=== PATIENT | male | born 1955 | race Caucasian/White ===

== ENCOUNTER 2016-10-08 21:34 | Inpatient (IN) | payer OTHER ==
[~2016-10-08] VITALS: Ht 182.9 cm; Wt 104.3 kg
[2016-10-09 01:15] LABS: HEMOGLOBIN 13.1 gm/dl (14.0-17.5); RED BLOOD COUNT 4.36 M/UL (4.20-5.50); WHITE BLOOD COUNT 8.7 K/UL (4.5-11.0)
[2016-10-09] MEDS ORDERED: WELLBUTRIN 75 M75 MG PO (11:22)
[2016-10-09] MEDS ORDERED: VOLTAREN EC 5050 MG PO (11:23)
[2016-10-09] MEDS ORDERED: KLONOPIN TAB 00.5 MG PO (11:23)
[2016-10-09] MEDS ORDERED: ESCITALOPRAM OX20 MG PO (11:24)
[2016-10-09] MEDS ORDERED: NEURONTIN 300300 MG PO (11:24)
[2016-10-09] MEDS ORDERED: GLUCOTROL5 MG PO (11:25)
[2016-10-09] MEDS ORDERED: LOPID TAB 600600 MG PO (11:25)
[2016-10-09] MEDS ORDERED: ZESTORETIC 20-1 EACH PO (11:26)
[2016-10-09] MEDS ORDERED: LYRICA200 MG PO (11:26)
[2016-10-09] MEDS ORDERED: TOPROL XL50 MG PO (11:27)
[2016-10-09] MEDS ORDERED: GLUCOPHAGE1000 MG PO (11:27)
[2016-10-09] MEDS ORDERED: OMEPRAZOLE40 MG PO (11:28)
[2016-10-09] MEDS ORDERED: TRAZODONE HCL50 MG PO (11:28)
[2016-10-09] MEDS ORDERED: ALLERGY10 MG PO (11:29)
[2016-10-09] MEDS ORDERED: VICTOZA 1818 MG/3 ML SQ (11:29)
[2016-10-09] MEDS ORDERED: TOUJEO SQ (11:31)
[2016-10-09] MEDS ORDERED: ENDOCET 10-3251 EACH PO (11:34)
[2016-10-10 03:54] LABS: HEMOGLOBIN 11.5 gm/dl (14.0-17.5)
[2016-10-10 04:00] LABS: RED BLOOD COUNT 3.86 M/UL (4.20-5.50); WHITE BLOOD COUNT 14.1 K/UL (4.5-11.0)
[2016-10-11 07:21] LABS: RED BLOOD COUNT 3.73 M/UL (4.20-5.50)
[2016-10-11 07:42] LABS: BUN/CREATININE RATIO 20 (0-10)
[2016-10-14 05:24] LABS: BUN/CREATININE RATIO 19 (0-10)
[2016-10-15 04:46] LABS: HEMOGLOBIN 12.8 gm/dl (14.0-17.5); RED BLOOD COUNT 4.28 M/UL (4.20-5.50); WHITE BLOOD COUNT 9.9 K/UL (4.5-11.0)
[2016-10-15 05:13] LABS: BUN/CREATININE RATIO 18 (0-10)
[2016-10-16] MEDS ORDERED: DAKIN'S SOLUTI500 ML IR (14:03)
[2016-10-16] MEDS ORDERED: ZYVOX600 MG PO (14:06)
== END 2016-10-16 17:10 | disposition home or self-care (01) | DRG 540 ==
LOC: ER1 21:34 → M/S 10-09 08:30 → ZEROF 10-09 08:30 → M/S 10-09 12:52
PROVIDERS: Emergency Medicine; Physician Assistant Medical; ADMIT Family Medicine
PROC: 3E0234Z Introduction of Serum, Toxoid and Vaccine into Muscle, Percutaneous Approach (ICD-10-PCS; principal; 2016-10-16)
DX: M86.9 Osteomyelitis, unspecified (principal); N17.9 Acute kidney failure, unspecified; E87.2 Acidosis; L03.032 Cellulitis of left toe; L97.521 Non-pressure chronic ulcer of other part of left foot limited to breakdown of skin; D64.9 Anemia, unspecified; E11.65 Type 2 diabetes mellitus with hyperglycemia; E11.42 Type 2 diabetes mellitus with diabetic polyneuropathy; E11.649 Type 2 diabetes mellitus with hypoglycemia without coma; E11.22 Type 2 diabetes mellitus with diabetic chronic kidney disease; I12.9 Hypertensive chronic kidney disease with stage 1 through stage 4 chronic kidney disease, or unspecified chronic kidney disease; N18.9 Chronic kidney disease, unspecified; B95.62 Methicillin resistant Staphylococcus aureus infection as the cause of diseases classified elsewhere; E78.5 Hyperlipidemia, unspecified; M54.6 Pain in thoracic spine; J43.9 Emphysema, unspecified; K21.9 Gastro-esophageal reflux disease without esophagitis; F41.9 Anxiety disorder, unspecified; Z23 Encounter for immunization; Z87.891 Personal history of nicotine dependence; Z88.8 Allergy status to other drugs, medicaments and biological substances; Z88.5 Allergy status to narcotic agent; Z79.891 Long term (current) use of opiate analgesic; Z79.899 Other long term (current) drug therapy; Z79.84 Long term (current) use of oral hypoglycemic drugs
CPT/HCPCS: ECHO; 36415; 70450; 71020; 73718; 78452; 80048; 80053; 80061; 80202; 81001; 82550; 82553; 82728; 82962; 83036; 83540; 83550; 83690; 83735; 83874; 83880; 84484; 85025; 85027; 85379; 85610; 85730; 86140; 87070; 87077; 87086; 87186; 87205; 93005; 93017; 93306; 93925; 99285; A9502; G0378; J3370; J7030; J7070; Q2039

== ENCOUNTER 2016-12-26 08:48 | Day surgery (SDC) | payer OTHER ==
[~2016-12-26] VITALS: Ht 182.9 cm; Wt 109.3 kg
[~2016-12-26 08:48] MED LIST: ALLERGY10 MG PO; DAKIN'S SOLUTI500 ML IR; ENDOCET 10-3251 EACH PO; ESCITALOPRAM OX20 MG PO; GLUCOPHAGE1000 MG PO; GLUCOTROL5 MG PO; KLONOPIN TAB 00.5 MG PO; LOPID TAB 600600 MG PO; LYRICA200 MG PO; NEURONTIN 300300 MG PO; OMEPRAZOLE40 MG PO; TOPROL XL50 MG PO; TOUJEO SQ; TRAZODONE HCL50 MG PO; VICTOZA 1818 MG/3 ML SQ; VOLTAREN EC 5050 MG PO; WELLBUTRIN 75 M75 MG PO; ZESTORETIC 20-1 EACH PO; ZYVOX600 MG PO
[2016-12-26 09:21] LABS: HEMOGLOBIN 13.7 gm/dl (14.0-17.5); RED BLOOD COUNT 4.48 M/UL (4.20-5.50); WHITE BLOOD COUNT 6.3 K/UL (4.5-11.0)
[2016-12-27 06:36] LABS: HEMOGLOBIN 12.1 gm/dl (14.0-17.5); WHITE BLOOD COUNT 7.6 K/UL (4.5-11.0)
[2016-12-27 06:58] LABS: RED BLOOD COUNT 4.02 M/UL (4.20-5.50)
[2016-12-27] MEDS ORDERED: VITAMIN C 500500 MG PO (17:58)
[2016-12-27] MEDS ORDERED: ASPIRIN325 MG PO (18:20)
[2016-12-27] MEDS ORDERED: BACTRIM DS TAB1 EACH PO (18:21)
[2016-12-27] MEDS ORDERED: CLINDAMYCIN HC300 MG PO (18:21)
== END 2016-12-27 20:15 | disposition home or self-care (01) ==
LOC: OR 08:48 → M/S 16:47 → OR 18:18 → M/S 18:49 → OR 12-27 20:15 → M/S 12-27 20:15
PROVIDERS: Podiatrist Foot & Ankle Surgery
PROC: 0LNW3ZZ Release Left Foot Tendon, Percutaneous Approach (ICD-10-PCS; 2016-12-26)
PROC: 0HBRXZZ Excision of Toe Nail, External Approach (ICD-10-PCS; 2016-12-26)
PROC: 0HBRXZZ Excision of Toe Nail, External Approach (ICD-10-PCS; 2016-12-26)
PROC: 0HBRXZZ Excision of Toe Nail, External Approach (ICD-10-PCS; 2016-12-26)
PROC: 0HBRXZZ Excision of Toe Nail, External Approach (ICD-10-PCS; 2016-12-26)
PROC: 0HBRXZZ Excision of Toe Nail, External Approach (ICD-10-PCS; 2016-12-26)
PROC: 0Y6S0Z0 Detachment at Left 2nd Toe, Complete, Open Approach (ICD-10-PCS; principal; 2016-12-26 10:45)
DX: T81.89XA Other complications of procedures, not elsewhere classified, initial encounter (principal); E11.69 Type 2 diabetes mellitus with other specified complication; M86.672 Other chronic osteomyelitis, left ankle and foot; B95.62 Methicillin resistant Staphylococcus aureus infection as the cause of diseases classified elsewhere; E11.40 Type 2 diabetes mellitus with diabetic neuropathy, unspecified; M20.42 Other hammer toe(s) (acquired), left foot; B35.1 Tinea unguium; L60.3 Nail dystrophy; L60.2 Onychogryphosis; I10 Essential (primary) hypertension; G47.30 Sleep apnea, unspecified; K21.9 Gastro-esophageal reflux disease without esophagitis; G89.29 Other chronic pain; M19.90 Unspecified osteoarthritis, unspecified site; F41.9 Anxiety disorder, unspecified; F32.9 Major depressive disorder, single episode, unspecified; F17.220 Nicotine dependence, chewing tobacco, uncomplicated; Z86.69 Personal history of other diseases of the nervous system and sense organs; Z87.440 Personal history of urinary (tract) infections; Z88.8 Allergy status to other drugs, medicaments and biological substances; Z79.84 Long term (current) use of oral hypoglycemic drugs; Z79.891 Long term (current) use of opiate analgesic; Z79.899 Other long term (current) drug therapy; Z98.890 Other specified postprocedural states
CPT/HCPCS: 36415; 73630; 80048; 82962; 83036; 85027; 86140; 87070; 87077; 87186; 87205; 93005; G0378; J1200; J1815; J2250; J2405; J2795; J3010; J3370; J7030; J7050; J7070; J7120

== ENCOUNTER → 2020-07-24 | Outpatient (CLI) | payer OTHER ==
[~2020-07-24] MED LIST changes: +ARICEPT5 MG PO; +ASPIRIN325 MG PO; +AUGMENTIN 875-1 EACH PO; +BACTRIM DS TAB1 EACH PO; +CLINDAMYCIN HC300 MG PO; +CYCLOBENZAPRINE10 MG PO; +DOXYCYCLINE HY100 MG PO; +FARXIGA10 MG PO; +FERROUS SULFAT325 M2 PO; +FISH OIL 1,2001 EACH PO; +GLUCOPHAGE XR500 MG PO; +GLUCOTROL 10 MG10 MG PO; -GLUCOTROL5 MG PO; +IBU600 MG PO; +KEFLEX CAP 500500 MG PO; +KLONOPIN2 MG PO; +LASIX20 MG PO; +LEXAPRO20 MG PO; +LIPITOR20 MG PO; +LISINOPRIL-HCT1 EAC1 PO; +LOPRESSOR50 MG PO; +NAMENDA10 MG PO; +NOVOLOG 10100 UNITS/ SC; +OXYCODONE HCL10 MG PO; +PREDNISONE20 MG PO; +PROTONIX40 MG PO; +PROVENTIL HFA6.7 GM INH; +PROZAC20 MG PO; +SENNA-S LAXATI1 EACH PO; +TESSALON PERLE100 MG PO; +TESTOSTERO200 MG/1 M IM; +TOPROL XL25 MG PO; +TOUJEO MAX300 UNIT/1 SC; +TRAZODONE HCL150 MG PO; +TYLENOL325 MG PO; +VANCOMYCIN750 MG/151 IV; +VIBRAMYCIN100 MG PO; +VICTOZA 1818 MG/3 ML SC; +VITAMIN C 500500 MG PO; +Voltaren Gel 1 % TOP; +ZYRTEC10 MG PO; +ZYVOX 600 MG T600 MG PO
== END ==
LOC: RAD 10:06
DX: J18.9 Pneumonia, unspecified organism (principal)
CPT/HCPCS: 71046

== ENCOUNTER 2020-09-04 16:46 | Inpatient (IN) | payer OTHER ==
[~2020-09-04] VITALS: Ht 182.9 cm; Wt 106.6 kg
[~2020-09-04 16:46] MED LIST changes: -VANCOMYCIN750 MG/151 IV
[2020-09-04 19:07] LABS: RED BLOOD COUNT 4.2 M/UL (4.20-5.50); WHITE BLOOD COUNT 18.3 K/UL (4.5-11.0)
[2020-09-05 03:55] LABS: HEMOGLOBIN 11.4 gm/dl (14.0-17.5)
[2020-09-05 04:02] LABS: RED BLOOD COUNT 3.74 M/UL (4.20-5.50); WHITE BLOOD COUNT 13.4 K/UL (4.5-11.0)
[2020-09-06 05:43] LABS: RED BLOOD COUNT 3.71 M/UL (4.20-5.50); WHITE BLOOD COUNT 14.8 K/UL (4.5-11.0)
[2020-09-07 05:29] LABS: HEMOGLOBIN 11.7 gm/dl (14.0-17.5); RED BLOOD COUNT 3.84 M/UL (4.20-5.50)
[2020-09-07 05:30] LABS: WHITE BLOOD COUNT 10.4 K/UL (4.5-11.0)
[2020-09-07 05:53] LABS: BUN/CREATININE RATIO 11 (0-10)
--- NOTE | 2020-09-07 15:36 | NUR ---
SINGLE LUMEN PICC LINE INSERTED IN THE RIGHT BASILIC VEIN. NO COMPLICATIONS. ASPIRATES AND FLUSHES WELL.
[2020-09-08 03:30] LABS: HEMOGLOBIN 11.9 gm/dl (14.0-17.5); RED BLOOD COUNT 3.95 M/UL (4.20-5.50); WHITE BLOOD COUNT 10.5 K/UL (4.5-11.0)
[2020-09-08 03:48] LABS: BUN/CREATININE RATIO 12 (0-10)
[2020-09-09 05:55] LABS: BUN/CREATININE RATIO 15 (0-10)
[2020-09-10 04:01] LABS: HEMOGLOBIN 12.2 gm/dl (14.0-17.5); RED BLOOD COUNT 4.03 M/UL (4.20-5.50); WHITE BLOOD COUNT 11.5 K/UL (4.5-11.0)
[2020-09-10 04:23] LABS: BUN/CREATININE RATIO 17 (0-10)
[2020-09-11 04:01] LABS: HEMOGLOBIN 12.4 gm/dl (14.0-17.5); RED BLOOD COUNT 4.16 M/UL (4.20-5.50); WHITE BLOOD COUNT 11.5 K/UL (4.5-11.0)
[2020-09-11 04:24] LABS: BUN/CREATININE RATIO 21 (0-10)
[2020-09-12 04:24] LABS: HEMOGLOBIN 12.4 gm/dl (14.0-17.5); RED BLOOD COUNT 4.12 M/UL (4.20-5.50); WHITE BLOOD COUNT 12.1 K/UL (4.5-11.0)
[2020-09-12 04:48] LABS: BUN/CREATININE RATIO 19 (0-10)
--- NOTE | 2020-09-12 18:13 | NUR ---
WOUND CARE DONE AT 1700 1/4 INCH [place]UZE WITH DANKINS PACKED IN THE WOUND WITH IODINE SOAKED 4X4 AND ABD PAD TO COVER KURLEX AND MARIE BANDAGE WRAPPED AROUND THE WOUND
[2020-09-13 04:33] LABS: RED BLOOD COUNT 4.02 M/UL (4.20-5.50)
[2020-09-13 04:49] LABS: BUN/CREATININE RATIO 17 (0-10)
--- NOTE | 2020-09-13 04:53 | NUR ---
[id number]. notified md and recieved orders to administer 10 units of insulin. will continue to monitor.
[2020-09-14 04:22] LABS: HEMOGLOBIN 12.5 gm/dl (14.0-17.5); RED BLOOD COUNT 4.17 M/UL (4.20-5.50); WHITE BLOOD COUNT 11.3 K/UL (4.5-11.0)
[2020-09-14 04:46] LABS: BUN/CREATININE RATIO 16 (0-10)
[2020-09-14] MEDS ORDERED: OXYCODONE HCL10 MG PO (12:01)
[2020-09-14] MEDS ORDERED: VANCOMYCIN750 MG/151 IV (12:01)
[2020-09-14] MEDS ORDERED: TRAZODONE HCL150 MG PO (12:01)
--- NOTE | 2020-09-14 14:44 | NUR ---
REPORT CALLED TO [facility] AT THIS TIME. REPORT GIVEN TO SHAYNE FLOREZ. I INFORMED HER THAT PATIENT WILL BE COMING BY AMBULANCE WHEN TRASNPORT IS AVAILABLE.
== END 2020-09-14 16:47 | DRG 622 ==
LOC: ER1 16:46 → CDU 18:10 → MED SURG 4 18:10
PROVIDERS: Internal Medicine; Podiatrist Foot & Ankle Surgery; Student in an Organized Health Care Education/Training Program; ADMIT Internal Medicine
PROC: 0JBQ0ZZ Excision of Right Foot Subcutaneous Tissue and Fascia, Open Approach (ICD-10-PCS; 2020-09-05)
PROC: 0J9Q00Z Drainage of Right Foot Subcutaneous Tissue and Fascia with Drainage Device, Open Approach (ICD-10-PCS; principal; 2020-09-05 14:00)
PROC: B548ZZA Ultrasonography of Superior Vena Cava, Guidance (ICD-10-PCS; 2020-09-07)
PROC: 02HV33Z Insertion of Infusion Device into Superior Vena Cava, Percutaneous Approach (ICD-10-PCS; 2020-09-07)
PROC: 0HBRXZZ Excision of Toe Nail, External Approach (ICD-10-PCS; 2020-09-14)
PROC: 0HBRXZZ Excision of Toe Nail, External Approach (ICD-10-PCS; 2020-09-14)
PROC: 0HBRXZZ Excision of Toe Nail, External Approach (ICD-10-PCS; 2020-09-14)
PROC: 0HBRXZZ Excision of Toe Nail, External Approach (ICD-10-PCS; 2020-09-14)
PROC: 0HBRXZZ Excision of Toe Nail, External Approach (ICD-10-PCS; 2020-09-14)
PROC: 0HBNXZZ Excision of Left Foot Skin, External Approach (ICD-10-PCS; 2020-09-14)
PROC: 0HBNXZZ Excision of Left Foot Skin, External Approach (ICD-10-PCS; 2020-09-14)
PROC: 0HBNXZZ Excision of Left Foot Skin, External Approach (ICD-10-PCS; 2020-09-14)
DX: E11.621 Type 2 diabetes mellitus with foot ulcer (principal); A48.0 Gas gangrene; M72.6 Necrotizing fasciitis; E11.52 Type 2 diabetes mellitus with diabetic peripheral angiopathy with gangrene; L03.115 Cellulitis of right lower limb; L97.412 Non-pressure chronic ulcer of right heel and midfoot with fat layer exposed; L02.611 Cutaneous abscess of right foot; E87.1 Hypo-osmolality and hyponatremia; Z20.822 Contact with and (suspected) exposure to COVID-19; I12.9 Hypertensive chronic kidney disease with stage 1 through stage 4 chronic kidney disease, or unspecified chronic kidney disease; E11.65 Type 2 diabetes mellitus with hyperglycemia; D63.1 Anemia in chronic kidney disease; N18.30 Chronic kidney disease, stage 3 unspecified; L97.519 Non-pressure chronic ulcer of other part of right foot with unspecified severity; E11.22 Type 2 diabetes mellitus with diabetic chronic kidney disease; E87.6 Hypokalemia; L60.3 Nail dystrophy; E11.42 Type 2 diabetes mellitus with diabetic polyneuropathy; E66.9 Obesity, unspecified; L85.9 Epidermal thickening, unspecified; L84 Corns and callosities; B35.1 Tinea unguium; F32.9 Major depressive disorder, single episode, unspecified; G47.33 Obstructive sleep apnea (adult) (pediatric); B95.62 Methicillin resistant Staphylococcus aureus infection as the cause of diseases classified elsewhere; G25.81 Restless legs syndrome; M51.36 Other intervertebral disc degeneration, lumbar region; F41.9 Anxiety disorder, unspecified; Z89.422 Acquired absence of other left toe(s); Z79.899 Other long term (current) drug therapy; Z90.49 Acquired absence of other specified parts of digestive tract; Z82.3 Family history of stroke; Z87.891 Personal history of nicotine dependence
CPT/HCPCS: 0240U; 36415; 73630; 73718; 80048; 80053; 80202; 81001; 82962; 83605; 85025; 85610; 85652; 85730; 86140; 87040; 87070; 87077; 87086; 87186; 87205; 93926; 93971; 97110; 97116; 97162; 99285; J0692; J1650; J2250; J2270; J2543; J2795; J3010; J3370; J3475; J3480; J7030; J7070; J7120

== ENCOUNTER → 2020-10-08 | Outpatient (CLI) | payer OTHER ==
[~2020-10-08] MED LIST changes: +VANCOMYCIN750 MG/151 IV
[2020-10-08 18:37] LABS: HEMOGLOBIN 12.1 gm/dl (14.0-17.5); RED BLOOD COUNT 4.01 M/UL (4.20-5.50)
== END ==
LOC: LBRF 18:23
PROVIDERS: Nurse Practitioner Family
DX: L03.115 Cellulitis of right lower limb (principal)
CPT/HCPCS: 80053; 85025

== ENCOUNTER → 2021-01-17 | Outpatient (CLI) | payer OTHER | LOC: RAD 15:06 | DX: R05 Cough (principal); R91.8 Other nonspecific abnormal finding of lung field | CPT/HCPCS: 71046 ==

== ENCOUNTER 2021-03-22 14:48 | Inpatient (IN) | payer MEDICARE ==
[~2021-03-22] VITALS: Ht 182.9 cm; Wt 104.3 kg
[2021-03-22 16:04] LABS: HEMOGLOBIN 12.5 gm/dl (14.0-17.5); RED BLOOD COUNT 3.98 M/UL (4.20-5.50); WHITE BLOOD COUNT 17.1 K/UL (4.5-11.0)
[2021-03-22 16:32] LABS: BUN/CREATININE RATIO 12 (0-10)
[2021-03-23 01:46] LABS: HEMOGLOBIN 10.6 gm/dl (14.0-17.5)
[2021-03-23 01:47] LABS: RED BLOOD COUNT 3.46 M/UL (4.20-5.50); WHITE BLOOD COUNT 12.4 K/UL (4.5-11.0)
[2021-03-23 02:15] LABS: BUN/CREATININE RATIO 14 (0-10)
[2021-03-23 03:05] LABS: BORDETELLA PARAPERTUSSIS Not Detected (Not Detectd); BORDETELLA PERTUSSIS Not Detected (Not Detectd); CHLAMYDIA PNEUMONIAE Not Detected (Not Detectd); CORONAVIRUS HKU1 Not Detected (Not Detectd); CORONAVIRUS NL63 Not Detected (Not Detectd); CORONAVIRUS OC43 Not Detected (Not Detectd); CORONOAVIRUS 229E Not Detected (Not Detectd); HUMAN METAPNEUMOVIRUS Not Detected (Not Detectd); HUMAN RHINOVIRUS/ENTEROVIRUS Not Detected (Not Detectd); INFLUENZA A Not Detected (Not Detectd); INFLUENZA B Not Detected (Not Detectd); MYCOPLASMA PNEUMONIAE Not Detected (Not Detectd); PARAINFLUENZA VIRUS 1 Not Detected (Not Detectd); PARAINFLUENZA VIRUS 2 Not Detected (Not Detectd); PARAINFLUENZA VIRUS 3 Not Detected (Not Detectd); PARAINFLUENZA VIRUS 4 Not Detected (Not Detectd); RESPIRATORY SYNCYTIAL VIRUS Not Detected (Not Detectd)
[2021-03-23 04:03] LABS: SARS-CoV-2 NOT DETECTED (Not Detectd)
[2021-03-24 06:46] LABS: HEMOGLOBIN 10.9 gm/dl (14.0-17.5); RED BLOOD COUNT 3.52 M/UL (4.20-5.50); WHITE BLOOD COUNT 8.4 K/UL (4.5-11.0)
[2021-03-24] MEDS ORDERED: LISINOPRIL20 MG PO (12:32)
[2021-03-24] MEDS ORDERED: AUGMENTIN 875-1 EACH PO (12:32)
[2021-03-24] MEDS ORDERED: DOXYCYCLINE HY100 MG PO (12:32)
== END 2021-03-24 15:05 | disposition home or self-care (01) | DRG 871 ==
LOC: ER1 14:48 → CDU 18:11 → MED SURG 4 21:06
PROVIDERS: Emergency Medicine; ADMIT Internal Medicine
PROC: B24BZZZ Ultrasonography of Heart with Aorta (ICD-10-PCS; principal; 2021-03-23)
DX: A41.9 Sepsis, unspecified organism (principal); J18.9 Pneumonia, unspecified organism; J12.9 Viral pneumonia, unspecified; N17.9 Acute kidney failure, unspecified; L03.115 Cellulitis of right lower limb; E87.2 Acidosis; Z20.822 Contact with and (suspected) exposure to COVID-19; E86.0 Dehydration; E11.9 Type 2 diabetes mellitus without complications; I08.2 Rheumatic disorders of both aortic and tricuspid valves; F03.90 Unspecified dementia, unspecified severity, without behavioral disturbance, psychotic disturbance, mood disturbance, and anxiety; I10 Essential (primary) hypertension; I25.10 Atherosclerotic heart disease of native coronary artery without angina pectoris; I45.10 Unspecified right bundle-branch block; Z79.4 Long term (current) use of insulin; Z79.899 Other long term (current) drug therapy; Z90.49 Acquired absence of other specified parts of digestive tract; Z98.890 Other specified postprocedural states
CPT/HCPCS: ECHO; 36415; 70450; 71045; 71250; 72125; 73700; 80053; 80061; 81001; 82436; 82550; 82553; 82570; 82728; 82962; 83036; 83540; 83550; 83605; 83690; 83735; 83880; 84133; 84156; 84300; 84443; 84484; 85025; 85379; 86140; 87081; 87086; 87633; 93005; 93306; 93880; 97161; 99285; A6212; J0696; J1650; J7030; Q9967; U0002

== ENCOUNTER → 2021-05-09 | Outpatient (CLI) | payer MEDICARE, OTHER ==
[~2021-05-09] MED LIST changes: +LISINOPRIL20 MG PO
== END ==
LOC: RAD 15:48
DX: R06.00 Dyspnea, unspecified (principal)
CPT/HCPCS: 71046

== ENCOUNTER → 2021-09-05 | Outpatient (CLI) | payer MEDICARE, OTHER | LOC: HEART 5 07:30 | DX: R07.9 Chest pain, unspecified (principal); E11.9 Type 2 diabetes mellitus without complications | CPT/HCPCS: 78452; A9502; J2785 ==

== ENCOUNTER 2021-11-08 07:20 | Emergency (ER) | payer MEDICARE ==
[~2021-11-08 07:20] MED LIST changes: -AMOX TR-K CLV1 EAC4 PO
[2021-11-08 08:17] LABS: HEMOGLOBIN 12.8 gm/dl (14.0-17.5); RED BLOOD COUNT 4.16 M/UL (4.20-5.50); WHITE BLOOD COUNT 7.1 K/UL (4.5-11.0)
[2021-11-08 08:41] LABS: BUN/CREATININE RATIO 28 (0-10)
[2021-11-08] MEDS ORDERED: AMOX TR-K CLV1 EAC4 PO (10:25)
== END 2021-11-08 12:48 | disposition home or self-care (01) ==
LOC: ER1 07:20
PROVIDERS: Emergency Medicine
DX: E11.621 Type 2 diabetes mellitus with foot ulcer (principal); E11.65 Type 2 diabetes mellitus with hyperglycemia; I10 Essential (primary) hypertension
CPT/HCPCS: 71045; 73630; 80053; 81001; 82009; 82550; 82553; 82962; 84484; 85025; 96374; 96376; 99283

== ENCOUNTER → 2021-11-08 | Day surgery (SDC) | payer MEDICARE, MEDICAID ==
[~2021-11-08] MED LIST changes: +AMOX TR-K CLV1 EAC4 PO; +ASPIRIN CHEWABL81 MG PO; +DEPO-TESTO100 MG/1 M IM; +FLOVENT DISKUS50 MCG; +HYDROCHLOROTHIA25 MG PO; +ISOSORBIDE MONO30 MG PO; +LINZESS145 MCG PO; +LOPID600 MG PO; +NOVOLIN 70100 UNIT/2 SQ; +OZEMPIC1 MG/0.71 SQ; +REMERON30 MG PO; +VIIBRYD20 MG PO
== END | disposition home or self-care (01) ==
LOC: OR 06:09
DX: K21.9 Gastro-esophageal reflux disease without esophagitis (principal); Z20.822 Contact with and (suspected) exposure to COVID-19; I10 Essential (primary) hypertension; R13.10 Dysphagia, unspecified; I25.10 Atherosclerotic heart disease of native coronary artery without angina pectoris; J44.9 Chronic obstructive pulmonary disease, unspecified; G47.30 Sleep apnea, unspecified; E78.00 Pure hypercholesterolemia, unspecified; E11.9 Type 2 diabetes mellitus without complications; M19.90 Unspecified osteoarthritis, unspecified site; I25.2 Old myocardial infarction; Z79.4 Long term (current) use of insulin; Z79.51 Long term (current) use of inhaled steroids; Z79.82 Long term (current) use of aspirin; Z79.84 Long term (current) use of oral hypoglycemic drugs; Z79.899 Other long term (current) drug therapy; Z87.891 Personal history of nicotine dependence; Z88.4 Allergy status to anesthetic agent
CPT/HCPCS: 82962; J7030

== ENCOUNTER → 2021-12-09 | Outpatient (CLI) | payer MEDICARE, OTHER ==
[~2021-12-09] MED LIST changes: +AMOX TR-K CLV1 EAC4 PO
== END ==
LOC: RAD 12:51
DX: E11.621 Type 2 diabetes mellitus with foot ulcer (principal); L97.519 Non-pressure chronic ulcer of other part of right foot with unspecified severity
CPT/HCPCS: 73630

== ENCOUNTER → 2021-12-10 | Outpatient (CLI) | payer MEDICARE, OTHER | END | disposition home or self-care (01) | LOC: WCC 08:16 | PROC: 0JBQ0ZZ Excision of Right Foot Subcutaneous Tissue and Fascia, Open Approach (ICD-10-PCS; principal; 2021-12-10) | DX: E11.621 Type 2 diabetes mellitus with foot ulcer (principal); L97.412 Non-pressure chronic ulcer of right heel and midfoot with fat layer exposed; E11.52 Type 2 diabetes mellitus with diabetic peripheral angiopathy with gangrene; E11.65 Type 2 diabetes mellitus with hyperglycemia; J44.9 Chronic obstructive pulmonary disease, unspecified; G47.30 Sleep apnea, unspecified; I10 Essential (primary) hypertension; I25.10 Atherosclerotic heart disease of native coronary artery without angina pectoris; M10.9 Gout, unspecified; M19.90 Unspecified osteoarthritis, unspecified site; M06.9 Rheumatoid arthritis, unspecified; Z79.4 Long term (current) use of insulin; Z79.899 Other long term (current) drug therapy; Z88.4 Allergy status to anesthetic agent; Z79.890 Hormone replacement therapy ==

== ENCOUNTER → 2021-12-17 | Outpatient (CLI) | payer MEDICARE, OTHER | LOC: KOH-I 12-16 08:45 → EMI 11:51 → KOH-I 13:00 | DX: E11.621 Type 2 diabetes mellitus with foot ulcer (principal); L97.419 Non-pressure chronic ulcer of right heel and midfoot with unspecified severity | CPT/HCPCS: 73718 ==

== ENCOUNTER → 2021-12-18 | Outpatient (CLI) | payer MEDICARE, OTHER | END | disposition home or self-care (01) | LOC: WCC 07:24 | PROC: 0KBV0ZZ Excision of Right Foot Muscle, Open Approach (ICD-10-PCS; principal; 2021-12-18) | DX: E11.621 Type 2 diabetes mellitus with foot ulcer (principal); L97.415 Non-pressure chronic ulcer of right heel and midfoot with muscle involvement without evidence of necrosis; J44.9 Chronic obstructive pulmonary disease, unspecified; G47.30 Sleep apnea, unspecified; E11.51 Type 2 diabetes mellitus with diabetic peripheral angiopathy without gangrene; I25.10 Atherosclerotic heart disease of native coronary artery without angina pectoris; E11.65 Type 2 diabetes mellitus with hyperglycemia; I10 Essential (primary) hypertension; M10.9 Gout, unspecified; I25.2 Old myocardial infarction; Z79.4 Long term (current) use of insulin; Z79.899 Other long term (current) drug therapy; Z88.4 Allergy status to anesthetic agent ==

== ENCOUNTER → 2021-12-31 | Outpatient (CLI) | payer MEDICARE, OTHER ==
[2021-12-31 11:50] LABS: HEMOGLOBIN 12.6 gm/dl (14.0-17.5); RED BLOOD COUNT 4.22 M/UL (4.20-5.50); WHITE BLOOD COUNT 7.4 K/UL (4.5-11.0)
[2021-12-31 12:19] LABS: BUN/CREATININE RATIO 21 (0-10)
== END ==
LOC: LAB 11:06
PROVIDERS: Nurse Practitioner Family
DX: E11.621 Type 2 diabetes mellitus with foot ulcer (principal); L97.509 Non-pressure chronic ulcer of other part of unspecified foot with unspecified severity; R94.31 Abnormal electrocardiogram [ECG] [EKG]; I45.2 Bifascicular block
CPT/HCPCS: 36415; 71046; 80053; 83036; 85027; 85652; 86140; 93005

== ENCOUNTER → 2022-01-06 | Outpatient (CLI) | payer MEDICARE, OTHER ==
[~2022-01-06] VITALS: Ht 182.9 cm; Wt 104.3 kg
== END ==
LOC: OPSV 01-02 09:00
DX: E11.621 Type 2 diabetes mellitus with foot ulcer (principal); L97.509 Non-pressure chronic ulcer of other part of unspecified foot with unspecified severity; M86.071 Acute hematogenous osteomyelitis, right ankle and foot
CPT/HCPCS: 96365; C1751; J1335

== ENCOUNTER → 2022-01-13 | Outpatient (CLI) | payer MEDICARE, OTHER ==
[2022-01-13 14:47] LABS: HEMOGLOBIN 12.5 gm/dl (14.0-17.5); RED BLOOD COUNT 4.13 M/UL (4.20-5.50); WHITE BLOOD COUNT 5.5 K/UL (4.5-11.0)
== END | disposition home or self-care (01) ==
LOC: OPSV 14:00
PROVIDERS: Nurse Practitioner Family
PROC: 05HY33Z Insertion of Infusion Device into Upper Vein, Percutaneous Approach (ICD-10-PCS; principal; 2022-01-13)
DX: E11.621 Type 2 diabetes mellitus with foot ulcer (principal); M86.071 Acute hematogenous osteomyelitis, right ankle and foot
CPT/HCPCS: 80053; 85027; 85652; 86140

== ENCOUNTER → 2022-01-13 | Outpatient (CLI) | payer MEDICARE, OTHER | END | disposition home or self-care (01) | LOC: WCC 08:20 | PROC: 0JBQ0ZZ Excision of Right Foot Subcutaneous Tissue and Fascia, Open Approach (ICD-10-PCS; principal; 2022-01-13) | DX: E11.621 Type 2 diabetes mellitus with foot ulcer (principal); L97.412 Non-pressure chronic ulcer of right heel and midfoot with fat layer exposed ==

== ENCOUNTER → 2022-02-03 | Outpatient (CLI) | payer MEDICARE, OTHER | END | disposition home or self-care (01) | LOC: WCC 07:38 | PROC: 0JDQ0ZZ Extraction of Right Foot Subcutaneous Tissue and Fascia, Open Approach (ICD-10-PCS; principal; 2022-02-03) | DX: E11.621 Type 2 diabetes mellitus with foot ulcer (principal); L97.412 Non-pressure chronic ulcer of right heel and midfoot with fat layer exposed; I10 Essential (primary) hypertension; I25.10 Atherosclerotic heart disease of native coronary artery without angina pectoris; E11.51 Type 2 diabetes mellitus with diabetic peripheral angiopathy without gangrene; E11.65 Type 2 diabetes mellitus with hyperglycemia; E11.69 Type 2 diabetes mellitus with other specified complication; M86.071 Acute hematogenous osteomyelitis, right ankle and foot; J44.9 Chronic obstructive pulmonary disease, unspecified; G47.30 Sleep apnea, unspecified; M10.9 Gout, unspecified; M19.90 Unspecified osteoarthritis, unspecified site; I25.2 Old myocardial infarction; Z79.4 Long term (current) use of insulin; Z79.899 Other long term (current) drug therapy; Z88.4 Allergy status to anesthetic agent ==

== ENCOUNTER → 2022-02-13 | Outpatient (CLI) | payer MEDICARE, OTHER | LOC: US 09:30 | PROVIDERS: Internal Medicine Nephrology | DX: N17.9 Acute kidney failure, unspecified (principal); R93.422 Abnormal radiologic findings on diagnostic imaging of left kidney; R93.421 Abnormal radiologic findings on diagnostic imaging of right kidney | CPT/HCPCS: 36415; 80053; 81001; 82043; 82570; 84156 ==

== ENCOUNTER → 2022-02-17 | Outpatient (CLI) | payer MEDICARE, OTHER | LOC: WCC 07:43 | DX: E11.621 Type 2 diabetes mellitus with foot ulcer (principal); E11.65 Type 2 diabetes mellitus with hyperglycemia; L97.519 Non-pressure chronic ulcer of other part of right foot with unspecified severity; I10 Essential (primary) hypertension; G47.30 Sleep apnea, unspecified; I73.9 Peripheral vascular disease, unspecified; I25.10 Atherosclerotic heart disease of native coronary artery without angina pectoris; M86.071 Acute hematogenous osteomyelitis, right ankle and foot; J44.9 Chronic obstructive pulmonary disease, unspecified | CPT/HCPCS: G0463 ==

== ENCOUNTER → 2022-02-17 | Outpatient (CLI) | payer MEDICARE, OTHER | LOC: OPSV 14:07 | DX: E11.622 Type 2 diabetes mellitus with other skin ulcer (principal); L98.499 Non-pressure chronic ulcer of skin of other sites with unspecified severity | CPT/HCPCS: G0463 ==

== ENCOUNTER 2022-04-05 14:54 | Emergency (ER) | payer MEDICARE, OTHER ==
[2022-04-05 16:03] LABS: HEMOGLOBIN 12.7 gm/dl (14.0-17.5); RED BLOOD COUNT 4.09 M/UL (4.20-5.50); WHITE BLOOD COUNT 8.5 K/UL (4.5-11.0)
[2022-04-05 16:29] LABS: BUN/CREATININE RATIO 25 (0-10)
[2022-04-05] MEDS ORDERED: OMEPRAZOLE20 M1 PO (18:37)
== END 2022-04-05 18:50 | disposition home or self-care (01) ==
LOC: ER1 14:54
PROVIDERS: Emergency Medicine
DX: R10.9 Unspecified abdominal pain (principal); R10.812 Left upper quadrant abdominal tenderness; E11.9 Type 2 diabetes mellitus without complications; Z87.442 Personal history of urinary calculi
CPT/HCPCS: 80053; 81001; 83690; 84484; 85025; 86140; 96374; 96375; 99284; J2270; J2405

== ENCOUNTER → 2022-04-22 | Outpatient (CLI) | payer MEDICARE ==
[~2022-04-22] MED LIST changes: +OMEPRAZOLE20 M1 PO
== END ==
LOC: HEART 5 08:45
DX: I25.119 Atherosclerotic heart disease of native coronary artery with unspecified angina pectoris (principal); R06.02 Shortness of breath; I10 Essential (primary) hypertension; R60.9 Edema, unspecified
CPT/HCPCS: 78452; A9502; J2785